=== PATIENT | female | born 1960 | race Caucasian/White ===

== ENCOUNTER 2017-08-01 14:51 | Emergency (ER) | payer MEDICARE, MEDICAID ==
--- NOTE | 2017-08-01 17:19 | EDM.PDOC ---
ED HPI GENERAL MEDICAL PROBLEM - General Chief Complaint: Respiratory Problem Stated Complaint: SOB Time Seen by Provider: 08/01/17 15:25 Source of Information: Reports: Patient, Family History Limitations: Reports: No Limitations - History of Present Illness INITIAL COMMENTS - FREE TEXT/NARRATIVE: 57-year-old female that has had a cough and shortness of breath for the past several weeks. She's been seen twice in the walk-in clinic, labs up and drawn in one chest x-ray has been done and she's been reassured. On her second visit they gave her a course of prednisone she has one day left. She isn't to be evaluated because she still feels like she is short of breath especially with activity or lying down. Cough is improved. Nonproductive. No nausea or vomiting. No fevers or chills Onset: Unknown/Unsure Severity: Mild Worsens with: Reports: Other (Activity or lying down) Associated Symptoms: Reports: Cough, Shortness of Breath - Related Data Allergies Allergy/AdvReac Type Severity Reaction Status Date / Time chlorpromazine HCl Allergy Itching Verified 08/01/17 15:06 [From Thorazine] meperidine HCl [From Demerol] Allergy Itching Verified 08/01/17 15:06 aspirin AdvReac Intermediate upset Verified 08/01/17 15:06 stomache Home Meds: Home Meds Albuterol [IJP: Ventolin HFA] 2 puff INH .TWICE DAILY 08/01/17 [History] Esomeprazole Magnesium [Nexium] 20 mg PO DAILY PRN 08/01/17 [History] LORazepam [Ativan] 2 mg PO Q4H PRN 08/01/17 [History] Prednisone [IJD: Prednisone] 10 mg PO DAILY 08/01/17 [History] Sertraline [Zoloft] 150 mg PO DAILY 08/01/17 [History] Past Medical History Neurological History: Reports: Seizure Psychiatric History: Reports: Anxiety, Depression, PTSD Endocrine/Metabolic History: Reports: Obesity/BMI 30+ Oncologic (Cancer) History: Reports: Other (See Below) Other Oncologic History: skin Dermatologic History: Reports: Psoriasis - Past Surgical History Head Surgeries/Procedures: Reports: None Endocrine Surgical History: Reports: None Neurological Surgical History: Reports: None Musculoskeletal Surgical History: Reports: Other (See Below) Other Musculoskeletal Surgeries/Procedures:: 3 level fursion. fusion left sacariliac joint area. lower level all fused Oncologic Surgical History: Reports: None Social & Family History - Family History Family Medical History: Noncontributory - Tobacco Use Smoking Status *Q: Former Smoker Years of Tobacco use: 40 Packs/Tins Daily: 2 Used Tobacco, but Quit: Yes Month Tobacco Last Used: november Second Hand Smoke Exposure: No - Caffeine Use Caffeine Use: Reports: Coffee, Soda - Recreational Drug Use Recreational Drug Use: Yes Drug Use in Last 12 Months: Yes Recreational Drug Type: Reports: Marijuana/Hashish Other Recreational Drug Type: Medical for ptsd Recreational Drug Use Frequency: Rarely ED ROS GENERAL - Review of Systems Review Of Systems: See Below Constitutional: Reports: Malaise, Weakness. Denies: Fever, Chills Respiratory: Reports: Shortness of Breath, Cough. Denies: Sputum Cardiovascular: Denies: Chest Pain GI/Abdominal: Reports: Abdominal Pain (Patient had some abdominal pain last week which has resolved) : Reports: No Symptoms Skin: Reports: No Symptoms Neurological: Reports: No Symptoms. Denies: Headache ED EXAM, GENERAL - Physical Exam Exam: See Below Exam Limited By: No Limitations General Appearance: Alert, No Apparent Distress Neck: Normal Inspection Respiratory/Chest: No Respiratory Distress, Other (Slight decreased breath sounds in the left base) Cardiovascular: Regular Rate, Rhythm. No: Tachycardia GI/Abdominal: Soft, Non-Tender Extremities: No Pedal Edema Neurological: Alert, Oriented Psychiatric: Normal Affect, Normal Mood Course - Vital Signs Last Recorded V/S: Last Vital Signs Temp 99.3 F 08/01/17 15:04 Pulse 66 08/01/17 15:04 Resp 20 08/01/17 15:04 BP 168/92 H 08/01/17 15:04 Pulse Ox 97 08/01/17 15:04 - Orders/Labs/Meds Orders: Active Orders 24 hr Category Date Time Status Chest 2V [CR] Routine Exams 08/01/17 16:08 Taken Labs: Laboratory Tests 08/01/17 08/01/17 08/01/17 Range/Units 16:18 16:18 16:18 WBC 11.7 H (4.5-11.0) K/uL RBC 5.14 (3.30-5.50) M/uL Hgb 13.6 (12.0-15.0) g/dL Hct 43.7 (36.0-48.0) % MCV 85 (80-98) fL MCH 27 (27-31) pg MCHC 31 L (32-36) % Plt Count 298 (150-400) K/uL Neut % (Auto) 87 H (36-66) % Lymph % (Auto) 9 L (24-44) % Swain % (Auto) 4 (2-6) % Eos % (Auto) 0 L (2-4) % Baso % (Auto) 0 (0-1) % D-Dimer, Quantitative < 100 (0.0-400.0) ng/mL Sodium 144 (140-148) mmol/L Potassium 4.5 (3.6-5.2) mmol/L Chloride 107 (100-108) mmol/L Carbon Dioxide 29 (21-32) mmol/L Anion Gap 8.3 (5.0-14.0) mmol/L BUN 9 (7-18) mg/dL Creatinine 0.7 (0.6-1.0) mg/dL Est Cr Clr Drug Dosing 81.01 mL/min Estimated GFR (MDRD) > 60 (>60) Glucose 113 H (74-106) mg/dL Calcium 8.6 (8.5-10.1) mg/dL Total Bilirubin 0.3 (0.2-1.0) mg/dL AST 19 (15-37) U/L ALT 40 (12-78) U/L Alkaline Phosphatase 54 (46-116) U/L Troponin I < 0.017 (0.000-0.056) ng/mL Total Protein 6.0 L (6.4-8.2) g/dL Albumin 3.4 (3.4-5.0) g/dL Globulin 2.6 (2.3-3.5) g/dL Albumin/Globulin Ratio 1.3 (1.2-2.2) Amylase 58 (25-115) U/L Lipase 241 (73-393) U/L - Re-Assessments/Exams Free Text/Narrative Re-Assessment/Exam: 08/01/17 17:29 Two-view chest x-ray was obtained and is normal. CBC shows a slightly elevated white count which is likely related to prednisone therapy. Complete chemistry profile, d-dimer and troponin were all negative or normal. Patient is going to finish the prednisone therapy and recheck next week if not improving satisfactorily. 08/01/17 17:30 Patient also felt that albuterol inhalers have helped her in the past and one was provided Departure - Departure Time of Disposition: 17:30 Disposition: Home, Self-Care 01 Condition: Good Clinical Impression: Bronchitis, Dyspnea - Discharge Information Instructions: Acute Bronchitis, Adult, [id number] Referrals: Martinez Da Silva MD [Primary Care Provider] - Forms: ED Department Discharge Care Plan Goals: Increase activity as tolerated, use inhaler as needed for wheezing or shortness of breath. Recheck next week if not improving satisfactorily. - My Orders Last 24 Hours: My Active Orders 08/01/17 16:08 Chest 2V [CR] Routine - Assessment/Plan Last 24 Hours: My Active Orders 08/01/17 16:08 Chest 2V [CR] Routine
--- NOTE | 2017-08-02 08:37 | CR ---
Chest 2V HISTORY: dyspnea COMPARISON: None FINDINGS: Lungs appear clear and normally aerated. Cardiomediastinal silhouette is within normal limits. No vas cular redistribution or pleural fluid can be seen. Bony structures and soft tissues are unremarkable. IMPRESSION: No acute chest abnormality identified.
== END 2017-08-01 17:32 | disposition home or self-care (01) ==
LOC: JP.ED 14:51
DX: J40 Bronchitis, not specified as acute or chronic (principal); Z88.8 Allergy status to other drugs, medicaments and biological substances; Z88.6 Allergy status to analgesic agent
CPT/HCPCS: 36415; 71046; 71046-26; 80053; 82150; 83690; 84484; 85025; 85379; 99283; 99285

== ENCOUNTER 2024-12-04 07:43 | Day surgery (SDC) | payer MEDICARE, MEDICAID ==
[2024-12-04] MEDS ORDERED: Propofol 200 MG/20 ML SDV ONE (08:06)
[2024-12-04] MEDS ORDERED: fentaNYL 50 MCG/ML SDV ONE (08:06)
[2024-12-04] MEDS ORDERED: Midazolam 1 MG/ML 2 ML SDV ONE (08:06)
[2024-12-04] MEDS: Lactated Ringers 1,000 ML IV SCH (08:33)
== END 2024-12-04 11:10 | disposition home or self-care (01) ==
LOC: JP.SDS 07:43
PROVIDERS: ATTEND Surgery
DX: Z12.11 Encounter for screening for malignant neoplasm of colon (principal); K63.5 Polyp of colon; E66.9 Obesity, unspecified
CPT/HCPCS: 00811-QZ; 88305; J2250; J2704; J3010; J7120